=== PATIENT | female | born 1990 | race Caucasian/White ===

== ENCOUNTER 2018-02-12 13:08 | Emergency (ER) | payer SELFPAY ==
[~2018-02-12 13:08] MED LIST: PREN1TAB80 PO
== END 2018-02-12 13:36 | disposition home or self-care (01) ==
LOC: EDH 13:08
DX: J01.10 Acute frontal sinusitis, unspecified (principal); R05 Cough

== ENCOUNTER 2018-04-03 18:16 | Emergency (ER) | payer OTHER ==
[2018-04-03 18:48] LABS: APPEARANCE,URINE Clear (CLEAR); BILIRUBIN,URINE Negative (NEGATIVE); COLOR,URINE Yellow (YELLOW); GLUCOSE, URINE (UA) Negative (NEGATIVE); KETONES,URINE Negative (NEGATIVE); LEUKOCYTE ESTERASE ,URINE Moderate (NEGATIVE); NITRATE,URINE Positive (NEGATIVE); OCCULT BLOOD,URINE Negative (NEGATIVE); PH,URINE >=9.0 (5.0-8.0); PROTEIN,URINE Negative (NEGATIVE)
[2018-04-03 18:53] LABS: BASOPHILS % (AUTO) 0.6 % (0.0-5.0); EOSINOPHILS % (AUTO) 0.7 % (0.0-8.0); HEMATOCRIT 40.3 % (36-48); LYMPHOCYTES % (AUTO) 12.4 % (21.0-51.0); MEAN CORPUSCULAR HEMOGLOBIN 27.7 pg (27.0-33.0); MEAN CORPUSCULAR HGB CONC 33.1 g/dL (32.0-36.0); MEAN CORPUSCULAR VOLUME 83.8 fL (79-99); MONOCYTES % (AUTO) 7.5 % (3.0-13.0); NEUTROPHILS % (AUTO) 78.8 % (40.0-77.0); PLATELET COUNT (AUTO) 351 K/uL (130-400); RED CELL DISTRIBUTION WIDTH 13.4 % (11.0-15.5); WHITE BLOOD COUNT (AUTO) 17.2 K/uL (4.8-10.8)
[2018-04-03 18:58] LABS: BACTERIA,URINE Many /HPF (None Seen); RBC,URINE None Seen /HPF (0-1); TRANSITIONAL EPI CELLS,URINE Few /HPF (None Seen); WBC,URINE 26-50 /HPF (0-1)
[2018-04-03 19:01] LABS: CARBON DIOXIDE 28 mmol/L (21-32); CHLORIDE 100 mmol/L (101-111); CREATININE 1.1 mg/dL (0.5-1.5); GLOMERULAR FILTR. RATE CALC 63 mL/min (>60); GLUCOSE,RANDOM 102 mg/dL (70-105); SODIUM SERUM 136 mmol/L (136-145); UREA NITROGEN, BLOOD 8 mg/dL (7-18)
[2018-04-03] MEDS ORDERED: SODIUM CHLORIDE 0.9% 1000ML 3,000 ML IV ONE (19:03)
[2018-04-03] MEDS ORDERED: METOCLOPRAMIDE 10 MG/2 ML VIAL ONE (19:03)
[2018-04-03 19:04] LABS: INR 0.96 (0.85-1.15); PARTIAL THROMBOPLASTIN TIME 28.1 SEC (26.3-35.5); PROTHROMBIN TIME 10.1 SEC (9.6-11.6)
[2018-04-03] MEDS ORDERED: ACETAMINOPHEN EXTRA STRENGTH 500 MG TABLET ONE (19:04)
[2018-04-03] MEDS ORDERED: METHYLPREDNISOLONE SOD SUCC 125MG/2ML VIAL ONE (19:04)
[2018-04-03 19:16] LABS: ALANINE AMINOTRANSFERASE 22 U/L (12-78); ASPARTATE AMINOTRANSFERASE 16 U/L (10-37); BILIRUBIN,TOTAL 0.4 mg/dL (0.2-1.0); CREATINE KINASE MB < 0.5 ng/mL (0.5-3.6); CREATINE KINASE, TOTAL 36 U/L (21-232); MYOGLOBIN 30 ng/mL (10-92); TOTAL PROTEIN, SERUM 9.2 g/dL (6.0-8.3); TROPONIN I < 0.04 ng/mL (0.00-0.06)
[2018-04-03 19:33] LABS: RAPID GROUP A STREP POSITIVE (NEGATIVE)
[2018-04-03] MEDS ORDERED: CEFTRIAXONE SODIUM 1 GM ONE (19:34)
== END 2018-04-03 21:49 | disposition home or self-care (01) ==
LOC: EDH 18:16
DX: N39.0 Urinary tract infection, site not specified (principal); J02.9 Acute pharyngitis, unspecified; E11.9 Type 2 diabetes mellitus without complications; Z88.0 Allergy status to penicillin; Z79.4 Long term (current) use of insulin
CPT/HCPCS: 36415; 71045; 80053; 81001; 81025; 82550; 82553; 82948; 83605; 83874; 84484; 85025; 85610; 85730; 87040 ×2; 87088; 87186; 87804 ×2; 87880; 93005; 96374; 96375; 99285; J0696; J2765; J2930; J7030

== ENCOUNTER 2018-07-31 17:40 | Emergency (ER) | payer OTHER | END 2018-07-31 18:53 | disposition home or self-care (01) | LOC: EDH 17:40 | DX: M94.0 Chondrocostal junction syndrome [Tietze] (principal); Z88.0 Allergy status to penicillin | CPT/HCPCS: 71045 ==

== ENCOUNTER 2019-03-05 08:27 | Emergency (ER) | payer SELFPAY | END 2019-03-05 09:32 | disposition home or self-care (01) | LOC: EDH 08:27 | DX: M62.830 Muscle spasm of back (principal); M54.5 Low back pain; Z88.0 Allergy status to penicillin ==

== ENCOUNTER 2021-07-26 11:28 | Emergency (ER) | payer OTHER ==
[~2021-07-26] VITALS: Ht 170.2 cm; Wt 86.2 kg
[2021-07-26 12:04] LABS: BASOPHILS % (AUTO) 0.4 % (0.0-5.0); EOSINOPHILS % (AUTO) 1.8 % (0.0-8.0); HEMATOCRIT 39.5 % (36-48); LYMPHOCYTES % (AUTO) 12.3 % (21.0-51.0); MEAN CORPUSCULAR HEMOGLOBIN 28.3 pg (27.0-33.0); MEAN CORPUSCULAR HGB CONC 32.4 g/dL (32.0-36.0); MEAN CORPUSCULAR VOLUME 87.2 fL (79-99); MONOCYTES % (AUTO) 6.4 % (3.0-13.0); NEUTROPHILS % (AUTO) 78.8 % (40.0-77.0); PLATELET COUNT (AUTO) 236 K/uL (130-400); RED BLOOD CELL COUNT(AUTO) 4.53 MIL/uL (4.00-5.50); RED CELL DISTRIBUTION WIDTH 13.3 % (11.0-15.5); WHITE BLOOD COUNT (AUTO) 13.5 K/uL (4.8-10.8)
[2021-07-26 12:19] LABS: CREATININE 0.9 mg/dL (0.5-1.5)
[2021-07-26 12:23] LABS: ALBUMIN 3.9 g/dL (3.5-5.0); BILIRUBIN,TOTAL 0.3 mg/dL (0.2-1.0); TOTAL PROTEIN, SERUM 8.3 g/dL (6.0-8.3)
[2021-07-26] MEDS ORDERED: KETOROLAC 30MG VIAL (30MG/ML) IVP ONE (12:30)
[2021-07-26] MEDS ORDERED: ONDANSETRON 4MG INJ IVP ONE (12:30)
[2021-07-26 13:02] LABS: HCG,QUAL RESULT NEGATIVE (NEGATIVE)
[2021-07-26 13:06] LABS: AMPHET/METH SCREEN,URINE NEGATIVE (NEGATIVE); BARBITURATE SCREEN, URINE NEGATIVE (NEGATIVE); BENZODIAZEPINES SCREEN,URINE NEGATIVE (NEGATIVE); CANNABINOID SCREEN,URINE NEGATIVE (NEGATIVE); COCAINE SCREEN,URINE NEGATIVE (NEGATIVE); OPIATE SCREEN,URINE NEGATIVE (NEGATIVE); PHENCYCLIDINE SCREEN,URINE NEGATIVE (NEGATIVE)
[2021-07-26 13:17] LABS: APPEARANCE,URINE CLEAR (CLEAR); BILIRUBIN,URINE NEGATIVE (NEGATIVE); COLOR,URINE YELLOW (YELLOW); GLUCOSE, URINE (UA) NEGATIVE (NEGATIVE); KETONES,URINE NEGATIVE (NEGATIVE); LEUKOCYTE ESTERASE ,URINE LARGE (NEGATIVE); NITRATE,URINE NEGATIVE (NEGATIVE); OCCULT BLOOD,URINE MODERATE (NEGATIVE); PROTEIN,URINE TRACE mg/dL (NEGATIVE); UROBILINOGEN,URINE 0.2 mg/dL (0.2-1.0)
[2021-07-26 13:21] LABS: BACTERIA,URINE Rare /HPF (None Seen); SQUAMOUS EPITHELIAL CELL,UR Rare /HPF (0-2)
[2021-07-26] MEDS ORDERED: CEFTRIAXONE 1G VIAL IVP STA (13:29)
[2021-07-26] MEDS ORDERED: HYDROCODONE/ACETAMINOPHEN 5/325 MG TAB PO SCH (13:58)
[2021-07-26] MEDS ORDERED: LEVOFLOXACIN 500 MG TABLET PO STA (13:58)
[2021-07-26] MEDS ORDERED: LEVO750T46 PO (14:50)
[2021-07-26] MEDS ORDERED: ONDA4TAB4 PO (14:50)
[2021-07-26] MEDS ORDERED: IBUP-2088 PO (14:50)
[2021-07-26 15:01] VITALS: BP 101/58
== END 2021-07-26 15:06 | disposition home or self-care (01) ==
LOC: EDH 11:28
DX: N12 Tubulo-interstitial nephritis, not specified as acute or chronic (principal); Z88.0 Allergy status to penicillin; Z91.018 Allergy to other foods; Z79.899 Other long term (current) drug therapy
CPT/HCPCS: 36415; 80053; 80305; 81001; 81025; 82150; 83690; 84702; 85025; 87077; 87088; 87186; 96374; 96375; 99284; J1885; J2405

== ENCOUNTER 2022-02-26 22:26 | Emergency (ER) | payer OTHER ==
[~2022-02-26] VITALS: Ht 170.2 cm; Wt 85.7 kg
[~2022-02-26 22:26] MED LIST changes: +IBUP-2088 PO; +LEVO750T46 PO; +ONDA4TAB4 PO
[2022-02-26 22:33] VITALS: BP 142/73
[2022-02-26] MEDS ORDERED: AZITHROMYCIN 250 MG TABLET PO ONE ×2 (23:25→23:30)
[2022-02-26] MEDS ORDERED: DOXYCYCLINE HYCLATE 100 MG TABLET PO ONE (23:25)
[2022-02-26] MEDS ORDERED: DOXYCYCLINE HYCLATE 100 MG TABLET PO SCH (23:30)
[2022-02-27] MEDS ORDERED: BENZONATATE 100 MG CAPSULE PO SCH (00:30)
[2022-02-27] MEDS ORDERED: DOXY-336 PO (00:37)
[2022-02-27] MEDS ORDERED: AZIT250T9 PO (00:37)
[2022-02-27] MEDS ORDERED: IBUP-2070 PO (00:37)
[2022-02-27] MEDS ORDERED: BENZ-39 PO (00:39)
[2022-02-27] MEDS ORDERED: KETOROLAC 60 MG VIAL (30MG/ML) IM ONE (01:00)
== END 2022-02-27 01:08 | disposition home or self-care (01) ==
LOC: EDH 22:26
DX: L04.9 Acute lymphadenitis, unspecified (principal); R05.9 Cough, unspecified; Z20.822 Contact with and (suspected) exposure to COVID-19; Z88.0 Allergy status to penicillin; Z79.1 Long term (current) use of non-steroidal anti-inflammatories (NSAID)
CPT/HCPCS: 71045; 87635; 87804 ×2; 87880; 96372; 99284; C9803; J1885

== ENCOUNTER 2023-04-14 03:45 | Emergency (ER) | payer OTHER ==
[~2023-04-14] VITALS: Ht 170.2 cm; Wt 86.6 kg
[~2023-04-14 03:45] MED LIST changes: +AZIT250T9 PO; +BENZ-39 PO; +DOXY-469 PO; +IBUP-2070 PO; -LEVO750T46 PO; +LEVO750T68 PO
[2023-04-14 04:42] LABS: APPEARANCE,URINE CLOUDY (CLEAR); BILIRUBIN,URINE NEGATIVE (NEGATIVE); COLOR,URINE LIGHT-YELLOW (YELLOW); GLUCOSE, URINE (UA) NEGATIVE (NEGATIVE); KETONES,URINE NEGATIVE (NEGATIVE); LEUKOCYTE ESTERASE ,URINE 500 Leu/uL (NEGATIVE); NITRATE,URINE NEGATIVE (NEGATIVE); OCCULT BLOOD,URINE MODERATE (NEGATIVE); PROTEIN,URINE 50 mg/dL (NEGATIVE); UROBILINOGEN,URINE 0.2 mg/dL (0.2-1.0)
[2023-04-14 04:43] LABS: BASOPHILS % (AUTO) 0.6 % (0.0-5.0); EOSINOPHILS % (AUTO) 1.9 % (0.0-8.0); MEAN CORPUSCULAR HEMOGLOBIN 27.7 pg (27.0-33.0); MEAN CORPUSCULAR HGB CONC 33.8 g/dL (32.0-36.0); MEAN CORPUSCULAR VOLUME 81.9 fL (79-99); NEUTROPHILS % (AUTO) 69.1 % (40.0-77.0); PLATELET COUNT (AUTO) 234 K/uL (130-400); RED BLOOD CELL COUNT(AUTO) 4.76 MIL/uL (4.00-5.50); RED CELL DISTRIBUTION WIDTH 13.3 % (11.0-15.5); WHITE BLOOD COUNT (AUTO) 11.8 K/uL (4.8-10.8)
[2023-04-14 04:49] LABS: CREATININE 0.9 mg/dL (0.5-1.5); HCG,QUALITATIVE URINE NEGATIVE (NEGATIVE); POTASSIUM 3.9 mmol/L (3.5-5.1)
[2023-04-14 04:54] LABS: ALBUMIN 3.8 g/dL (3.5-5.0); TOTAL PROTEIN, SERUM 8.1 g/dL (6.0-8.3)
[2023-04-14] MEDS ORDERED: 0.9%NACL 1000ML 1,000 ML IV ONE (05:00)
[2023-04-14] MEDS ORDERED: KETOROLAC 30MG VIAL (30MG/ML) IVP ONE (05:00)
[2023-04-14 05:08] LABS: BACTERIA,URINE RARE /HPF (None Seen); MUCUS,URINE RARE LPF (None Seen); SQUAMOUS EPITHELIAL CELL,UR RARE /HPF (0-2); WBC,URINE 51-100 /HPF (0-1); YEAST,URINE BUDDING FEW /HPF (None Seen)
[2023-04-14] MEDS ORDERED: MAG/ALUM/SIMETH 30 ML UDCUP PO ONE (06:30)
[2023-04-14] MEDS ORDERED: SULF1TAB42 PO (08:25)
[2023-04-14 08:42] VITALS: BP 101/56
== END 2023-04-14 08:52 | disposition home or self-care (01) ==
LOC: EDH 03:45
DX: N39.0 Urinary tract infection, site not specified (principal); N26.1 Atrophy of kidney (terminal); N28.1 Cyst of kidney, acquired; Z79.899 Other long term (current) drug therapy; Z98.890 Other specified postprocedural states
CPT/HCPCS: 99285; 74176; 96374; 76700; 71046; 96361; 80053; 85025; 87077; 87088; 87186; 81001; 81025; 36415; 72110; J7030; J1885

== ENCOUNTER 2024-07-28 09:11 | Emergency (ER) | payer BC, MEDICAID ==
[~2024-07-28] VITALS: Ht 170.2 cm; Wt 88.5 kg
[~2024-07-28 09:11] MED LIST changes: -DOXY-469 PO; +DOXY100C61 PO; +NITR100C PO; +PHEN-847 PO; +SULF1TAB42 PO
[2024-07-28 09:35] LABS: BASOPHILS # (AUTO) 0.06 K/uL (0.00-0.20); BASOPHILS % (AUTO) 0.5 % (0.0-5.0); EOSINOPHILS # (AUTO) 0.25 K/uL (0.00-0.70); HEMATOCRIT 40.8 % (36-48); IMMATURE GRANULOCYTE ABSOLUTE 0.02 K/uL (0-1); LYMPHOCYTES # (AUTO) 2.7 K/uL (1.0-4.8); LYMPHOCYTES % (AUTO) 21.7 % (21.0-51.0); MEAN CORPUSCULAR HEMOGLOBIN 27.7 pg (27.0-33.0); MEAN CORPUSCULAR HGB CONC 32.4 g/dL (32.0-36.0); MEAN CORPUSCULAR VOLUME 85.5 fL (79-99); MONOCYTES # (AUTO) 0.8 K/uL (0.1-1.0); MONOCYTES % (AUTO) 6.1 % (3.0-13.0); NEUTROPHILS # (AUTO) 8.6 K/uL (1.8-7.7); NEUTROPHILS % (AUTO) 69.5 % (40.0-77.0); PLATELET COUNT (AUTO) 257 K/uL (130-400); RED BLOOD CELL COUNT(AUTO) 4.77 MIL/uL (4.00-5.50); RED CELL DISTRIBUTION WIDTH 13.2 % (11.0-15.5); WHITE BLOOD COUNT (AUTO) 12.3 K/uL (4.8-10.8)
[2024-07-28] MEDS: ondanSETRON 4MG INJ IVP ONE (09:41)
[2024-07-28] MEDS: morPHINE 2 MG SYG IVP ONE (09:41)
[2024-07-28] MEDS: FAMOTIDINE 20MG VIAL IV ONE (09:41)
[2024-07-28 09:45] LABS: CREATININE 0.9 mg/dL (0.5-1.0); POTASSIUM 3.9 mmol/L (3.5-5.1)
[2024-07-28 09:51] LABS: AMPHET/METH SCREEN,URINE NEGATIVE (NEGATIVE); BARBITURATE SCREEN, URINE NEGATIVE (NEGATIVE); BENZODIAZEPINES SCREEN,URINE NEGATIVE (NEGATIVE); CANNABINOID SCREEN,URINE NEGATIVE (NEGATIVE); COCAINE SCREEN,URINE NEGATIVE (NEGATIVE); OPIATE SCREEN,URINE NEGATIVE (NEGATIVE); PHENCYCLIDINE SCREEN,URINE NEGATIVE (NEGATIVE)
[2024-07-28 09:59] LABS: INR 0.95 (0.85-1.15); PROTHROMBIN TIME 10.3 SEC (9.6-11.6)
[2024-07-28 10:00] LABS: PARTIAL THROMBOPLASTIN TIME 27.2 SEC (26.3-35.5)
[2024-07-28 10:06] LABS: ALANINE AMINOTRANSFERASE 22 U/L (12-78); ALBUMIN 3.5 g/dL (3.5-5.0); ASPARTATE AMINOTRANSFERASE 22 U/L (10-37); BILIRUBIN,DIRECT < 0.1 mg/dL (0.0-0.3); BILIRUBIN,TOTAL 0.1 mg/dL (0.2-1.0); HCG,QUANTITATIVE 0 mIU/mL (0-5); TOTAL PROTEIN, SERUM 7.6 g/dL (6.0-8.3)
[2024-07-28 10:24] LABS: APPEARANCE,URINE CLEAR (CLEAR); BILIRUBIN,URINE NEGATIVE (NEGATIVE); COLOR,URINE COLORLESS (YELLOW); GLUCOSE, URINE (UA) NEGATIVE (NEGATIVE); KETONES,URINE NEGATIVE (NEGATIVE); LEUKOCYTE ESTERASE ,URINE NEGATIVE Leu/uL (NEGATIVE); NITRATE,URINE NEGATIVE (NEGATIVE); OCCULT BLOOD,URINE NEGATIVE (NEGATIVE); PROTEIN,URINE NEGATIVE (NEGATIVE); UROBILINOGEN,URINE 0.2 mg/dL (0.2-1.0)
[2024-07-28 10:25] LABS: BACTERIA,URINE RARE /HPF (None Seen); RBC,URINE 0-1 /HPF (0-1); SQUAMOUS EPITHELIAL CELL,UR RARE /HPF (0-2); WBC,URINE 0-1 /HPF (0-1)
[2024-07-28 10:26] LABS: HCG,QUALITATIVE URINE NEGATIVE (NEGATIVE)
[2024-07-28] MEDS ORDERED: IOHEXOL 350 MG/ML 100ML INFUS..BTL IV ONE (10:51)
[2024-07-28 11:45] VITALS: BP 111/78; PULSE 70; RESP 16; TEMP 97.9; O2SAT 100
[2024-07-28] MEDS ORDERED: KETO10TA2 PO (11:52)
[2024-07-28] MEDS ORDERED: ONDA-245 PO (11:52)
== END 2024-07-28 12:25 | disposition home or self-care (01) ==
LOC: EDH 09:11
DX: R10.11 Right upper quadrant pain (principal); R10.2 Pelvic and perineal pain; Z88.0 Allergy status to penicillin; Z79.899 Other long term (current) drug therapy
CPT/HCPCS: 99284; 74177; 96374; 96375; 80076; 80048; 80305; 84703; 84702; 83690; 85025; 85610; 85730; 83605; 81025; 36415; 81001; J3490; J2270; J2405; Q9967

== ENCOUNTER 2024-10-29 21:54 | Emergency (ER) | payer BC ==
[~2024-10-29] VITALS: Ht 170.2 cm; Wt 88.5 kg
[~2024-10-29 21:54] MED LIST changes: +KETO10TA2 PO; +ONDA-245 PO
[2024-10-29] MEDS: LIDOCAINE HCL 2% VISCOUS 15 ML UDCUP PO ONE (22:35)
[2024-10-29] MEDS: MAG/ALUM/SIMETH 30 ML UDCUP PO ONE (22:35)
[2024-10-29] MEDS: ondanSETRON 4MG INJ IVP STA (22:35)
[2024-10-29] MEDS: DICYCLOMINE HCL 10 MG/5 ML ML PO ONE (22:35)
[2024-10-29 23:04] LABS: BASOPHILS # (AUTO) 0.07 K/uL (0.00-0.20); BASOPHILS % (AUTO) 0.5 % (0.0-5.0); EOSINOPHILS # (AUTO) 0.25 K/uL (0.00-0.70); EOSINOPHILS % (AUTO) 1.8 % (0.0-8.0); HEMATOCRIT 37.5 % (36-48); IMMATURE GRANULOCYTE ABSOLUTE 0.04 K/uL (0-1); LYMPHOCYTES # (AUTO) 2.2 K/uL (1.0-4.8); LYMPHOCYTES % (AUTO) 15.9 % (21.0-51.0); MEAN CORPUSCULAR HGB CONC 32.8 g/dL (32.0-36.0); MEAN CORPUSCULAR VOLUME 85.4 fL (79-99); MONOCYTES # (AUTO) 1.1 K/uL (0.1-1.0); NEUTROPHILS # (AUTO) 10.3 K/uL (1.8-7.7); NEUTROPHILS % (AUTO) 73.5 % (40.0-77.0); PLATELET COUNT (AUTO) 239 K/uL (130-400); RED BLOOD CELL COUNT(AUTO) 4.39 MIL/uL (4.00-5.50); RED CELL DISTRIBUTION WIDTH 12.8 % (11.0-15.5)
[2024-10-29 23:13] LABS: CREATININE 0.9 mg/dL (0.5-1.0); POTASSIUM 3.5 mmol/L (3.5-5.1)
[2024-10-29 23:23] LABS: ALBUMIN 3.8 g/dL (3.5-5.0); BILIRUBIN,TOTAL 0.2 mg/dL (0.2-1.0); TOTAL PROTEIN, SERUM 7.5 g/dL (6.0-8.3)
[2024-10-29 23:48] LABS: APPEARANCE,URINE CLEAR (CLEAR); BILIRUBIN,URINE NEGATIVE (NEGATIVE); COLOR,URINE LIGHT-YELLOW (YELLOW); GLUCOSE, URINE (UA) NEGATIVE (NEGATIVE); KETONES,URINE NEGATIVE (NEGATIVE); LEUKOCYTE ESTERASE ,URINE NEGATIVE Leu/uL (NEGATIVE); NITRATE,URINE NEGATIVE (NEGATIVE); OCCULT BLOOD,URINE NEGATIVE (NEGATIVE); PH,URINE 6.5 (5.0-8.0); PROTEIN,URINE NEGATIVE (NEGATIVE); UROBILINOGEN,URINE 0.2 mg/dL (0.2-1.0)
[2024-10-29 23:49] LABS: ADD UA MICROSCOPIC NO
--- NOTE | 2024-10-30 00:25 | NUR ---
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
[2024-10-30] MEDS: morPHINE 2 MG SYG IVP STA (00:28)
--- NOTE | 2024-10-30 01:00 | NUR ---
CARE TRANSFERED TO ANDREY ZAZUETA
--- NOTE | 2024-10-30 01:27 | HMCIMG ---
CT ABDOMEN/PELVIS W/O CONTRAST HISTORY: Abdominal pain COMPARISON: 07/28/2024 TECHNIQUE: Multiple sequential axial images of the abdomen and pelvis were obtained from the dome of the diaphragm through symphysis pubis. Patient was not given contrast through intravenous route. Oral contrast was not given. FINDINGS: No pleural effusion is seen bilaterally. There is no evidence of parenchymal disease or pulmonary nodule of the visualized lower lungs. Degenerative changes of the thoracolumbar spine are present. The heart is not enlarged. Gallbladder is moderately distended. Liver measures 17 cm. The liver, spleen, adrenal glands and pancreas are unremarkable. There is no evidence of hydronephrosis bilaterally. There is left renal atrophy. Small left renal pelvic stone is seen. Fecal material is seen in the colon. There are normal size retroperitoneal and mesenteric lymph nodes. No ascites is seen. No CT evidence of acute appendicitis is seen. Clinical correlation is recommended. Pelvic sidewalls are symmetric bilaterally. Bladder is well distended without wall thickening. IMPRESSION: 1. Fecal material is seen in the colon. No CT evidence of acute appendicitis is seen. Clinical correlation is recommended. There is left renal atrophy. CT was performed with one or more following dose reduction techniques: automated exposure control, adjustment of the mA and kv according to patient's size, or use of a iterative reconstruction technique.
[2024-10-30 01:50] VITALS: BP 129/82; PULSE 84; RESP 16; TEMP 98.2; O2SAT 99
--- NOTE | 2024-10-30 02:00 | ERN ---
ED Note History of Present Illness Stated Complaint: ABD PAIN Chief Complaint: Abdominal Pain Time Seen by MD: 22:08 Time Seen by Midlevel: 22:11 Dictation: 34-year-old female with no past medical history coming in complaining of generalized abdominal pain onset at three today. Patient states before the pain started she ate it being cheese burrito, also took Mag citrate before coming into the emergency room because she has not gone to have a bowel movement in two days. Allergies: Coded Allergies: Penicillins (Verified Allergy, Mild, HIVES, 08/20/12) [place] (Unverified Allergy, Mild, SMALL RASH, 05/11/12) Home Meds Active Scripts Ketorolac Tromethamine (Ketorolac Tromethamine) 10 Mg Tablet, 10 MG PO Q6HPRN for 5 Days, #20 TAB Prov:STACIE REYES MD 07/28/24 Ondansetron (Ondansetron Odt) 8 Mg Tab.rapdis, 8 MG PO TID for 10 Days, #30 TAB Prov:STACIE REYES MD 07/28/24 Phenazopyridine HCl (Pyridium) 200 Mg Tab, 200 MG PO q8 hr for painful urination, #12 TAB 0 Refills Prov:RODDY OLMEDO NP 07/15/23 Nitrofurantoin Macrocrystal (Nitrofurantoin) 100 Mg Capsule, 100 MG PO BID for 7 Days, #14 CAP 0 Refills Prov:RODDY OLMEDO GAS PIPE LAYER 07/15/23 Sulfamethoxazole/Trimethoprim (Bactrim Ds Tablet) 1 Each Tablet, 1 TAB PO BID for uti for 7 Days, #14 TAB Prov:SARABJIT ORNELAS MD 04/14/23 Benzonatate (Tessalon Perles) 100 Mg Cap, 100 MG PO TID, #30 CAP 1 Refill Prov:TAWANNA LOPEZ MD 02/27/22 Ibuprofen (Ibuprofen) 600 Mg Tablet, 600 MG PO Q6H PRN for PAIN, #30 TAB Prov:TAWANNA LOPEZ MD 02/27/22 Azithromycin (Azithromycin) 250 Mg Tablet, 250 MG PO DAILY for 4 Days, #4 TAB 0 Refills Prov:TAWANNA LOPEZ MD 02/27/22 Doxycycline Monohydrate (Doxycycline Monohydrate) 100 Mg Capsule, 1 CAP PO BID for 10 Days, #20 CAP 0 Refills Prov:TAWANNA LOPEZ MD 02/27/22 Ibuprofen (Motrin/Advil) 600 Mg Tab, 600 MG PO Q6HPRN, #30 TAB Prov:ISABELA BISWAS NP 07/26/21 Ondansetron HCl (Zofran) 4 Mg Tablet, 4 MG PO Q6HPRN PRN for NAUSEA/VOMITING for 5 Days, #20 TAB 0 Refills Prov:ISABELA BISWAS NP 07/26/21 Levofloxacin (Levaquin 750Mg Tabs) 750 Mg Tablet, 500 MG PO DAILYBKFST, #10 TAB Prov:ISABELA BISWAS NP 07/26/21 Reported Medications Vits W-Ca,Fe,FA(<1Mg) ( Vitamins) 1 Each Tablet, 1 EACH PO DAILY, TAB 07/29/14 Vits W-Ca,Fe,FA(<1Mg) ( Vitamins) 1 Each Tablet, 1 EACH PO HS, TAB 07/27/14 Past Medical History Past Medical History: No Pertinent History Additional Past Medical Hx: Kidney stone 3 years ago, HERNIA Surgical History: None Surgical History Other: HERNIA Family History: Negative Social History: ETOH, Lives with family LMP: Sep 10, 2024 : 2 Para: 2 Aborts: 0 Review of System Dictation Constitutional: Negative for fever,chills, and weight loss Eyes: Negative for injury, pain,redness, and discharge ENT: Negative for injury,pain or swelling Cardiovascular: Negative for chest pain, palpitations, and edema Respiratory: Negative for shortness of breath, cough, and wheezing, Abdomen/GI: Positive for abdominal pain, no nausea, no vomiting, no diarrhea, and constipation Back: Negative for injury and pain : Negative for injury, bleeding and discharge MS/Extremity: Negative for injury and deformity Skin: Negative for rash, and discoloration Neuro: Negative for headache, weakness, numbness, tingling, and seizure Psych: Negative for suicide ideation, homicidal ideation, and hallucinations Review of Systems: was completed Initial Vital Sign VS Vital Signs Date Time Temp Pulse Resp B/P (MAP) Pulse Ox O2 Delivery O2 Flow Rate FiO2 10/29/24 22:02 98.4 81 20 143/85 99 Room Air 10/29/24 23:33 0 21 Physical Exam Dictation General: awake, alert, NAD Head/Face: Normocephalic, atraumatic Eyes: PERRL, EOMI, vision at baseline ENT: oral cavity clear, TMs clear, no signs of infection Neck: Trachea midline, supple, no nuchal rigidity Cardiovascular: RRR, normal S1/S2, No MRGs, no JVD Respiratory: CTAB, no respiratory distress, No rales or wheezes Abdomen: Soft, mild tenderness to right lower quadrant , non-distended, normal bowel sounds, no guarding or rebound. Skin: Warm, dry, normal turgor, no rash MS/Extremity: Pulses equal, no cyanosis, neurovascular intact, FROM Neuro: COAx4, GCS 15, strength 5/5, CN 2-12 intact, normal cerebellar exam, normal gait, Psych: Normal behavior, mood, and affect normal Results (Laboratory/Radiology) Laboratory/Radiology Laboratory Tests Test 10/29/24 22:57 10/29/24 23:35 White Blood Count 14.0 K/uL (4.8-10.8) H Red Blood Count 4.39 MIL/uL (4.00-5.50) Hemoglobin 12.3 g/dL (12.0-16.0) Hematocrit 37.5 % (36-48) Mean Corpuscular Volume 85.4 fL (79-99) Mean Corpuscular Hemoglobin 28.0 pg (27.0-33.0) Mean Corpuscular Hemoglobin Concent 32.8 g/dL (32.0-36.0) Red Cell Distribution Width 12.8 % (11.0-15.5) Platelet Count 239 K/uL (130-400) Mean Platelet Volume 9.9 fL (7.5-10.5) Immature Granulocyte % (Auto) 0.3 % (0-1) Neutrophils (%) (Auto) 73.5 % (40.0-77.0) Lymphocytes (%) (Auto) 15.9 % (21.0-51.0) L Monocytes (%) (Auto) 8.0 % (3.0-13.0) Eosinophils (%) (Auto) 1.8 % (0.0-8.0) Basophils (%) (Auto) 0.5 % (0.0-5.0) Neutrophils # (Auto) 10.3 K/uL (1.8-7.7) H Lymphocytes # (Auto) 2.2 K/uL (1.0-4.8) Monocytes # (Auto) 1.1 K/uL (0.1-1.0) H Eosinophils # (Auto) 0.25 K/uL (0.00-0.70) Basophils # (Auto) 0.07 K/uL (0.00-0.20) Absolute Immature Granulocyte (auto 0.04 K/uL (0-1) Nucleated Red Blood Cells 0.0 % (0.0-0.19) Sodium Level 141 mmol/L (136-145) Potassium Level 3.5 mmol/L (3.5-5.1) Chloride Level 103 mmol/L (101-111) Carbon Dioxide Level 31 mmol/L (21-32) Blood Urea Nitrogen 12 mg/dL (7-18) Creatinine 0.9 mg/dL (0.5-1.0) Glomerular Filtration Rate Calc 86 mL/min (>90) Random Glucose 96 mg/dL (70-105) Total Calcium 9.1 mg/dL (8.5-10.1) Total Bilirubin 0.2 mg/dL (0.2-1.0) Aspartate Amino Transf (AST/SGOT) 20 U/L (10-37) Alanine Aminotransferase (ALT/SGPT) 25 U/L (12-78) Alkaline Phosphatase 66 U/L (50-136) Total Protein 7.5 g/dL (6.0-8.3) Albumin 3.8 g/dL (3.5-5.0) Lipase 66 U/L (16-77) Human Chorionic Gonadotropin, Quant 0 mIU/mL (0-5) Urine Color LIGHT-YELLOW (YELLOW) Urine Appearance CLEAR (CLEAR) Urine pH 6.5 (5.0-8.0) Urine Specific [place] 1.021 (1.001-1.031) Urine Protein NEGATIVE mg/dL (NEGATIVE) Urine Glucose (UA) NEGATIVE mg/dL (NEGATIVE) Urine Ketones NEGATIVE mg/dL (NEGATIVE) Urine Occult Blood NEGATIVE (NEGATIVE) Urine Nitrate NEGATIVE (NEGATIVE) Urine Bilirubin NEGATIVE mg/dL (NEGATIVE) Urine Urobilinogen 0.2 mg/dL (0.2-1.0) Urine Leukocyte Esterase NEGATIVE Seth/uL Labs Reviewed?: Yes CT Scan Comment: [facility] [address] [place] [id number] IMAGING REPORT Signed PATIENT: ADRIANA BLOCK MR#: [id number] : 1990 SEX: F AGE: 34 LOCATION: [facility] ORDER STATUS: REG ER REPORT#: [id number] SERVICE REASON: generalized abdomnal pain/leukocytosis ORDERING PHYSICIAN: LORI CORDERO NP PROCEDURE: ABD PEL WO - CT ABDOMEN/PELVIS W/O CONTRAST CT ABDOMEN/PELVIS W/O CONTRAST HISTORY: Abdominal pain COMPARISON: 07/28/2024 TECHNIQUE: Multiple sequential axial images of the abdomen and pelvis were obtained from the dome of the diaphragm through symphysis pubis. Patient was not given contrast through intravenous route. Oral contrast was not given. FINDINGS: No pleural effusion is seen bilaterally. There is no evidence of parenchymal disease or pulmonary nodule of the visualized lower lungs. Degenerative changes of the thoracolumbar spine are present. The heart is not enlarged. Gallbladder is moderately distended. Liver measures 17 cm. The liver, spleen, adrenal glands and pancreas are unremarkable. There is no evidence of hydronephrosis bilaterally. There is left renal atrophy. Small left renal pelvic stone is seen. Fecal material is seen in the colon. There are normal size retroperitoneal and mesenteric lymph nodes. No ascites is seen. No CT evidence of acute appendicitis is seen. Clinical correlation is recommended. Pelvic sidewalls are symmetric bilaterally. Bladder is well distended without wall thickening. IMPRESSION: 1. Fecal material is seen in the colon. No CT evidence of acute appendicitis is seen. Clinical correlation is recommended. There is left renal atrophy. CT was performed with one or more following dose reduction techniques: automated exposure control, adjustment of the mA and kv according to patient's size, or use of a iterative reconstruction technique. DICTATED BY: RANULFO PARRA MD DATE: 10/30/24113 ELECTRONICALLY SIGNED BY: RANULFO PARRA MD DATE: 10/30/24126 ED Course ED Course Orders Procedure Category Date Status Time Cbc With Differential LAB 10/29/24 Complete 22:27 Comprehensive LAB 10/29/24 Complete Metabolic Panel 22:27 Lipase LAB 10/29/24 Complete 22:27 Hcg,Quantitative LAB 10/29/24 Complete 22:27 Urinalysis Profile LAB 10/29/24 Complete 22:27 Ondansetron 4mg Inj PHA 10/29/24 Complete (Zofran 4mg Inj) 22:27 Lidocaine Hcl 2% PHA 10/29/24 Complete Viscous (Lidocaine Hcl 22:30 Mag/Alum/Simeth 30ml PHA 10/29/24 Complete (Maalox Plus 30ml) 22:30 Dicyclomine Hcl PHA 10/29/24 Complete (Bentyl 10mg/5ml 22:30 Morphine 2mg Syg PHA 10/30/24 Complete (Morphine 2mg Syg) 00:18 Ct Abdomen/Pelvis W/O CT 10/30/24 Resulted Contrast 00:56 Current Medications Medications (Trade) Dose Ordered Sig/Angel Route PRN Reason Start Time Stop Time Status Last Admin Dose Admin Al Hydroxide/Mg Hydroxide (MAALox PLUS 30ML) 30 ml ONCE ONCE PO 10/29/24 22:30 10/29/24 22:31 DC 10/29/24 22:35 Dicyclomine HCl (Bentyl 10mg/5ml Syrup) 10 mg ONCE ONCE PO 10/29/24 22:30 10/29/24 22:31 DC 10/29/24 22:35 Lidocaine HCl (Lidocaine HCl 2% Viscous) 10 ml ONCE ONCE PO 10/29/24 22:30 10/29/24 22:31 DC 10/29/24 22:35 Morphine Sulfate (morPHINE 2MG SYG) 2 mg ONCE STAT IVP 10/30/24 00:18 10/30/24 00:20 DC 10/30/24 00:28 Ondansetron HCl (zoFRAN 4MG INJ) 4 mg ONCE STAT IVP 10/29/24 22:27 10/29/24 22:29 DC 10/29/24 22:35 Vital Signs Date Time Temp Pulse Resp B/P (MAP) Pulse Ox O2 Delivery O2 Flow Rate FiO2 10/30/24 01:50 98.2 84 16 129/82 99 Room Air* 0 21 10/29/24 23:33 98.2 80 16 140/80 98 Room Air* 0 21 10/29/24 22:02 98.4 81 20 143/85 99 Room Air Medical Decision Making MDM MDM: 34-year-old female with no past medical history coming in complaining of generalized abdominal pain onset at three today. Patient states before the pain started she ate it being cheese burrito, also took Mag citrate before coming into the emergency room because she has not gone to have a bowel movement in two days. Blood work is unremarkable. On physical exam patient is tender on right lower quadrant, added a CT. CT shows fecal matter seen in the colon, no evidence of acute appendicitis. Left renal atrophy. Patient states she already has a history of a small left kidney. Discussed patient that her intermittent abdominal cramping/pain could be related to her taking the Mag citrate. Educated to follow up with the PCP in 1-2 days and to return to the ER if symptoms worsen. Patient verbalized understanding, answered all questions. Differential diagnosis: Urinary tract infection, appendicitis, constipation Rationale: Tests considered and ordered secondary to shared decision making include: Previous outside records reviewed: Old ER visits. Risk of complication and/or morbidity or mortality of patient management: None Medications-Per medication reconciliation Need for hospitalization: Patient does not meet criteria for hospitalization. Need for emergency major/minor surgery: No There are no social concerns with this patient. Prescription drug management Prescriptions will include symptomatic care Patient's prior external medical records from other ER visits were reviewed by me as indicated. Prior testing and results from previous visits were reviewed. Prior tests were taken into account with medical decision making and resource utilization, independent historian/historians were used to obtain complete medical history. I independently interpreted the test that were performed, results were reviewed by me and considered findings on radiology if ordered. Medical management and examination interpretation discussions were had by me with other qualified healthcare professionals as indicated for the patient's care. DX & DISP Disposition: Discharge Departure Impression: Primary Impression: Abdominal pain Additional Impression: Constipation Condition: Stable Additional Instructions: Follow up with PCP in 1-2 days, return to the ER as needed. Referrals: SELF,REFERRAL (PCP) Time of Disposition: 02:00 I have reviewed the case, and I agree with, Diagnosis and Plan LORI CORDERO NP Oct 30, 2024 02:00
== END 2024-10-30 02:11 | disposition home or self-care (01) ==
LOC: EDH 21:54
DX: R10.84 Generalized abdominal pain (principal); K59.00 Constipation, unspecified; R10.2 Pelvic and perineal pain; Z88.0 Allergy status to penicillin; Z79.899 Other long term (current) drug therapy
CPT/HCPCS: 99284; 96374; 80053; 84702; 83690; 85025; 81003; 36415; 74176; 96375; J2405; J2270